=== PATIENT | female | born 1980 | race Caucasian/White ===

== ENCOUNTER 2018-03-16 00:43 | Outpatient (CLI) | payer MEDICAID, SELFPAY ==
--- NOTE | 2018-03-16 13:35 | DI.COMBO_ITS ---
SYMPTOMS/DIAGNOSIS: LUMP OR MASS, N63.0 BILATERAL MAMMOGRAM AND RIGHT BREAST ULTRASOUND: Mammograms were interpreted according to the usual protocol including computer analysis with CAD system, tomosynthesis and C view imaging. Comparison is with the prior examinations. Breast density D. No suspicious masses or microcalcifications are seen. There is a well-circumscribed 1 cm ovoid nodule in the subcutaneous tissues at the 9 o'clock position of the right breast corresponding to the palpable abnormality. No associated soft tissue calcifications or architectural distortion is seen. No other suspicious masses or microcalcifications are present. The skin and axillae are unremarkable. This ovoid nodule measured 0.7 cm on the prior examination from 11/23/2013. Targeted right breast ultrasound was performed. The mass at the 9 o'clock position was evaluated sonographically. In the subcutaneous tissues, there is an ovoid lobulated hypoechoic mass measuring 1 cm in size. No posterior acoustic enhancement or shadowing is seen. There does appear to be some internal blood flow. This area does correspond to the mammographic abnormality. IMPRESSION: Ovoid 1 cm hypoechoic vascular subcutaneous mass in the right breast corresponding to the palpable abnormality. This area was present on prior mammograms, but has shown some interval increase in size. This may represent a benign lesion such as a lymph node. Followup may include biopsy/ aspiration. If biopsy is not performed, a follow-up ultrasound in three months should be considered for reevaluation. Category 4. The findings were discussed with the patient on the date of the examination. MQSA ASSESSMENT OF FINDINGS: Suspicious. Biopsy should be considered. Category 4. Patient will receive a letter notifying them of these results. BI-RADS category D. The breasts are extremely dense, which lowers the sensitivity of mammography.
== END 2018-03-16 01:03 ==
PROVIDERS: PCP Nurse Practitioner; Visit Provider Nurse Practitioner
DX: N63.11 Unspecified lump in the right breast, upper outer quadrant (principal)
CPT/HCPCS: 76642; 77062; 77066; G0279

== ENCOUNTER 2021-01-02 03:05 | Outpatient (CLI) | payer MEDICAID, SELFPAY ==
--- NOTE | 2021-01-02 | DI.US_ITS ---
Exam(s) US BREAST LT COMPLETE US BREAST RT COMPLETE EXAM: US BREAST BILATERAL COMPLETE CLINICAL HISTORY: BILAT BREAST LUMPS, N63.0. TECHNIQUE: Complete ultrasound of both breasts was performed including all 4 quadrants of both breas ts as well as both retroareolar regions and both axillary regions. COMPARISON: Today's mammogram as well as prior mammograms reviewed.. This 40-year-old patient underw ent biopsy of the right breast approximately 3 years ago which was apparently negative for malignancy . This patient has been feeling a new right breast lump for the past 8 months. She also complains o f a finding below her left breast-anterior chest wall region FINDINGS: RIGHT BREAST ULTRASOUND: There is a solitary finding which is located at the 9 o'clock position appro ximately 2 cm from the nipple and corresponds to her palpable finding as well as the finding on the m ammogram today. This has appearance of a conglomeration of microcysts, 1 which appears to be partial ly hemorrhagic. Size is approximately 11 by 5 millimeters. No other focal findings in all 4 quadrants of the right breast nor in the immediate retroareolar jimmy on. Right axilla is negative for significant adenopathy. LEFT BREAST ULTRASOUND: There are no focal findings in all 4 quadrants nor in the immediate retroareolar region. No adenopat hy in the left axilla. However, there is a superficial finding in the anterior chest wall just below the left breast adjacen t to a rib which is a wider than taller 11 x 4 millimeter nodule which does not exhibit a tract to th e skin surface. It is adjacent to a rib but distinct-separate from the rib. Exhibits minimal increa sed through transmission. IMPRESSION: 1. 9 o'clock position finding in the right breast which corresponds to the finding on the mammogram a nd her palpable finding and has appearance of a partially hemorrhagic conglomeration of microcysts. No other focal right breast findings. 2. Findings just below the left breast adjacent to a rib measuring 11 x 4 millimeters as described ab ove. Not a simple cyst. Presently benign appearance but also requires follow-up. Appropriate follow-up is repeat bilateral breast ultrasound in 3 months, this to restudy the finding at the 9 o'clock position of the right breast as well as the finding immediately subjacent to the lef t breast.. Findings and follow-up recommendations were discussed by myself with the patient today. BI-RADS Category 3 - 3 month - Probably Benign Finding: Recommend follow-up mammography in 3 months Breast Density - Category D - Extremely dense Breast density Category C or D implies that the patient has dense breast tissue. Dense breast tissue can make it harder to find cancer on a mammogram. Dense breast tissue is also associated with an incr eased risk of breast cancer. This information about the result of the mammogram report was provided to the patient to raise their awareness. Use this report when you speak with the patient about their risks for breast cancer, which includes their family history. At that time, you may recommend additional screening tests (Ultrasoun d or MRI) as these tests may add significant information. A negative radiographic report should not delay biopsy if a dominant or clinically suspicious mass is present. Up to ten percent of cancers are not identified on mammography. A negative report may reinforce clinical impression. Adenosis and dense breasts may obscure an underlying neoplasm. False positive reports average 6 to 10%. Patient will receive a letter notifying them of these results.
--- NOTE | 2021-01-02 | DI.MAMMO_ITS ---
Exam(s) MAMMO DIAGNOSTIC BI EXAM: MAMMO DIAGNOSTIC BI CLINICAL HISTORY: BILAT BREAST LUMPS, N63.0. TECHNIQUE: Both CC and MLO views of both breasts were performed. Images were obtained with 3D Tomos ynthesistechnique and utilizing computer aided detection (CAD). Patient also underwent complete bilat eral breast ultrasound following this mammogram today. Please see that separate report. COMPARISON: Prior mammograms dating back to 2013, the most recent being March 2018. This patien t underwent right breast biopsy 2017, apparently benign. She has been feeling a new 9 o'clock position right breast lump for the last 8 months. She also has a new finding subjacent to her left breast where she claims her underwire bra is rubbing against her skin. FINDINGS: The fibroglandular tissue pattern is very dense, this decreasing sensitivity mammogram for finding in underlying lesions. There are no CAD designations in either breast. No new findings in the immediate vicinity of the biopsy marker clip which is at the 9 o'clock positio n of the right breast. However, approximately 1.5 centimeter more central at the same 9 o'clock posi tion of the right breast is her presently palpable finding which has appearance of a lobulated noncal cified nodule measuring approximately 9 x 10 millimeters. This corresponds to what appears to be a c onglomeration of partial hemorrhagic microcysts on today's ultrasound. In the opposite-left breast there are no new significant focal findings on mammography. The finding on ultrasound seen today is actually below the breast adjacent to a rib (see that separate ultrasound report dictated today. There are no malignant-appearing microcalcification groups in either breast. No new architectural di stortion. No significant skin thickening-traction. IMPRESSION: Very dense bilateral fibroglandular tissue. New right breast lobulated nodule at 9 o'clock position which corresponds to what appears to be a con glomeration of partially hemorrhagic microcysts as seen on today's ultrasound. No mammographic findi ngs in the left breast but finding on ultrasound as described on that separate report which is actual ly just below the breast adjacent to a rib. See separate ultrasound report Appropriate follow-up is repeat bilateral breast ultrasound in 3 months time.. Findings and recommendations were discussed by myself with the patient today. The patient was informed of the findings and follow-up recommendations [facility] BI-RADS Category 3 - 3 month - Probably Benign Finding: Recommend follow-up mammography in 3 months Breast Density - Category D - Extremely dense Breast density Category C or D implies that the patient has dense breast tissue. Dense breast tissue can make it harder to find cancer on a mammogram. Dense breast tissue is also associated with an incr eased risk of breast cancer. This information about the result of the mammogram report was provided to the patient to raise their awareness. Use this report when you speak with the patient about their risks for breast cancer, which includes their family history. At that time, you may recommend additional screening tests (Ultrasoun d or MRI) as these tests may add significant information. A negative radiographic report should not delay biopsy if a dominant or clinically suspicious mass is present. Up to ten percent of cancers are not identified on mammography. A negative report may reinforce clinical impression. Adenosis and dense breasts may obscure an underlying neoplasm. False positive reports average 6 to 10%. Patient will receive a letter notifying them of these results.
== END 2021-01-02 03:25 ==
PROVIDERS: PCP Nurse Practitioner; Visit Provider Nurse Practitioner
DX: N63.15 Unspecified lump in the right breast, overlapping quadrants (principal); R22.2 Localized swelling, mass and lump, trunk; N63.20 Unspecified lump in the left breast, unspecified quadrant
CPT/HCPCS: 76642; 77062; 77066; G0279

== ENCOUNTER 2021-04-07 02:21 | Outpatient (CLI) | payer MEDICAID, SELFPAY ==
--- NOTE | 2021-04-07 | DI.US_ITS ---
Exam(s) US BREAST LT COMPLETE US BREAST RT COMPLETE EXAM: US BREAST BILATERAL COMPLETE CLINICAL HISTORY: F/U MAMMO, INCONCLUSIVE, 3 MO F/U, DENSE BREAST TISSUE. TECHNIQUE: Complete ultrasound of the both breasts was performed including all 4 quadrants, the retr oareolar regions, and both axillae. COMPARISON: The prior ultrasound of 01/02/2021 was reviewed. Prior mammograms were also reviewed, m ost recent being 01/02/2021. This patient has very dense fibroglandular tissue on mammography. FINDINGS: RIGHT BREAST: Again noted is a previously described solitary finding which is at the 9 o'clock position, approximat les 2 cm from the nipple and which corresponds to a palpable finding. She claims that this has not c hanged in size. This again has the appearance of a conglomeration of benign microcysts. Presently m easures approximately 11 x 5 millimeters, unchanged. There are no other significant ultrasound findings in all 4 quadrants nor in the right axilla. LEFT BREAST: Again noted is a previously described relatively superficial finding at the 6 o'clock po sition border between the inferior aspect of the breast and the anterior chest wall. This is a well- defined 11 x 4 millimeter wider than taller nodule, unchanged from the previous study. No other significant ultrasound findings in all 4 quadrants nor in the left axilla. IMPRESSION: 1. Stable benign-appearing right breast cystic ultrasound finding at 9 o'clock position 2. Stable solid nodule 6 o'clock position of the opposite-left breast. I feel that this left breast finding should undergo ultrasound-guided biopsy. Findings are recommendations discussed by myself with the patient today. Discussed by phone with the provider today. BI-RADS Category 4 - Suspicious Abnormality: Biopsy should be considered Breast Density - Category D - Extremely dense Breast density Category C or D implies that the patient has dense breast tissue. Dense breast tissue can make it harder to find cancer on a mammogram. Dense breast tissue is also associated with an incr eased risk of breast cancer. This information about the result of the mammogram report was provided to the patient to raise their awareness. Use this report when you speak with the patient about their risks for breast cancer, which includes their family history. At that time, you may recommend additional screening tests (Ultrasoun d or MRI) as these tests may add significant information. A negative radiographic report should not delay biopsy if a dominant or clinically suspicious mass is present. Up to ten percent of cancers are not identified on mammography. A negative report may reinforce clinical impression. Adenosis and dense breasts may obscure an underlying neoplasm. False positive reports average 6 to 10%. Patient will receive a letter notifying them of these results.
== END 2021-04-07 02:41 ==
PROVIDERS: PCP Nurse Practitioner; Visit Provider Nurse Practitioner
DX: R92.8 Other abnormal and inconclusive findings on diagnostic imaging of breast (principal); N63.25 Unspecified lump in the left breast, overlapping quadrants; N60.01 Solitary cyst of right breast
CPT/HCPCS: 76642

== ENCOUNTER 2021-04-22 01:00 | Outpatient (CLI) | payer MEDICAID, SELFPAY ==
--- NOTE | 2021-04-22 | DI.US_ITS ---
Exam(s) US NEEDLE LOCAL BREAST WO RAD EXAM: US NEEDLE LOCAL BREAST WO RAD CLINICAL HISTORY: LT BREAST MASS, ULTRASOUND GUIDED BX. Left Breast. TECHNIQUE: Ultrasound guidance COMPARISON: US US BREAST LT COMPLETE from 04/07/2021 FINDINGS: Ultrasound guidance was provided during ultrasound-guided biopsy performed of a left chest wall lesio n performed by the breast surgeon. Radiologist was not present for this procedure. Supplied images reveal needle placement within the nodule of concern. IMPRESSION:
--- NOTE | 2021-04-22 14:08 | BREAST_PTH ---
PATIENT: Luisa Hollins LOC: [facility] U#:[id number] AGE/SX: 41/F ROOM: RE04/22/[address]: Morenita Tavares MD : 1980 BED: DIS: 04/22/2021 SPEC #: [id number] RECD: 04/22/21 16:39 STATUS: FRANCISCO REQ #: [id number] IVORY: 04/22/21 14:[address]: Morenita Tavares DEPT: Surgical Specimen RECD BY: Yusra Morgan ENTERED: 04/22/21 16:40 SP TYPE: Breast OTHR DR: Danisha Hooper Tissues: 1 - BREAST BX NEEDLE Procedures: GROSS AND MICRO LEVEL 4 Comments: [id number]
--- NOTE | 2021-04-24 09:32 | W.PM.OP ---
Date of service: 04/22/21 Time of Service: 13:00 Operative Note Operative Note DATE OF PROCEDURE: 04/22/21 PRE-OP DIAGNOSIS: Left Breast lesion POST-OP DIAGNOSIS: same PROCEDURE: Core needle biopsy of left Breast lesion SURGEON: Morenita Tavares ANESTHESIA TYPE: Local By Surgeon (1% Lidocaine) ESTIMATED BLOOD LOSS: 5 PATHOLOGY: other (core needle specimen) COMPLICATIONS: None Patient was transported to: no change Patient's condition: stable Implants: None Indications: Mrs Hollins is a pleasant 41-year-old female who had an abnormal mammogram. Follow-up ultrasound showed a lesion in the left breast that was suspicious. Radiologist recommended biopsy. The patient has never had a breast biopsy before. She has no family history of breast cancer that she is aware of. She has not noted any changes to the skin of the breast. The lesion is right at the mammary fold right where her bra sits. She has had no nipple discharge. Risks, benefits, alternatives and complications were reviewed with her prior to the procedure. Complications include but not limited to bleeding, injury to the ribs, pneumothorax, inability to do the biopsy due to location of the mass. On exam of the left breast the lesion is palpable. It feels well-circumscribed and very mobile. It is not tender. Procedure Description: After informed consent was obtained the patient was placed in a supine position. US was done of the left Breast and the lesion was localized by the US tech. The skin was cleaned with alcohol and infiltrated with the above local anesthetic. The skin was then prepped. An incision was made with an 11 blade. Using a 14 gauge core needle 2 specimens were removed and placed on telfa and placed in formalin. A titanium clip was then placed under US guidance into the lesion. The skin was cleaned and dried and a band aid was applied. The patient tolerated the procedure well and there were no immediate complications.
== END 2021-04-22 01:20 ==
PROVIDERS: PCP Nurse Practitioner; Visit Provider Surgery
DX: R92.8 Other abnormal and inconclusive findings on diagnostic imaging of breast (principal); N60.32 Fibrosclerosis of left breast
CPT/HCPCS: 19083; 88305; 76942

== ENCOUNTER 2021-10-27 14:01 | Outpatient (REF) | payer MEDICAID, SELFPAY ==
[2021-10-28 15:25] LABS: COVID-19 RT-PCR UVMMC Result Negative (Negative)
== END 2021-10-27 14:02 | disposition home or self-care (01) ==
LOC: LBN 14:01
PROVIDERS: PCP Nurse Practitioner; Visit Provider Physician Assistant Medical
DX: Z20.822 Contact with and (suspected) exposure to COVID-19 (principal)
CPT/HCPCS: U0003

== ENCOUNTER 2022-09-30 16:17 | Outpatient (REF) | payer MEDICAID, SELFPAY ==
--- NOTE | 2022-09-30 15:55 | PAPFT_PTH ---
PATIENT: Luisa Hollins LOC: [facility]#:[id number] AGE/SX: 42/F ROOM: RE09/30/[address]: TRE LANCE NP : 1980 BED: DIS: 09/30/2022 SPEC #: [id number] RECD: 10/01/22 12:42 STATUS: FRANCISCO REHarlan #: [id number] IVORY: 09/30/22 15:[address]: TRE LANCE DEPT: [facility] Cytology RECD BY: Yusra Morgan ENTERED: 10/01/22 12:43 SP TYPE: PAPFT OTHR DR: Danisha Hooper Tissues: 1 - CX/ENDOCX FOR PAP SMEARS Procedures: PAP THIN PREP/UVM Screening HPV DNA PROBE Comments: [id number]
[2022-10-01 02:08] LABS: Abs Immature Grans 0.02 10^3/uL (0.0-0.06); Absolute Basophil Count 0.04 10^3/uL (0.0-0.2); Absolute Eosinophil Count 0.08 10^3/uL (0.0-0.7); Absolute Lymphocyte Count 1.39 10^3/uL (1.2-3.4); Absolute Monocyte Count 0.56 10^3/uL (0.1-0.8); Absolute Neutrophil Count 4.19 10^3/uL (1.2-6.7); Basophils % 0.6; Eosinophils % 1.3; HCT 31.8 % (36.0-46.0); HGB 9.1 g/dL (11.2-15.7); Immature Grans % 0.3; Lymphocytes % 22.1; MCH 22.1 pg (27.0-33.0); MCHC 28.6 % (32.0-36.0); MCV 77 fL (80-95); MPV 10.4 fL (8.0-11.0); Monocytes % 8.9; Neutrophils % 66.8; Platelet Count 410 10^3/uL (130-400); RBC 4.12 10^6/uL (3.93-5.22); RDW 17.6 % (11.7-14.6); RDW-SD 49.4 fL; WBC 6.28 10^3/uL (4.4-10.8)
[2022-10-01 03:07] LABS: Vitamin B12 258 pg/mL (193-986)
[2022-10-01 11:20] LABS: Iron 8 ug/dL (50-170); Total Iron Binding Capacity 393 ug/dL (250-450); Transferrin Sat 2 % (15-50)
[2022-10-01 11:29] LABS: ALT 12 U/L (14-59); AST 16 U/L (15-37); Albumin 3.8 g/dL (3.4-5.0); Alkaline Phosphatase 91 U/L (46-116); Anion Gap 6.8 mmol/L (3-11); BUN 11 mg/dL (7-18); Bilirubin, Total 0.1 mg/dL (0.2-1.0); CO2 29.2 mmol/L (21.0-32.0); Calcium 8.6 mg/dL (8.5-10.1); Calculated LDL 101 mg/dL (<100); Chloride 100 mmol/L (98-107); Cholesterol 198 mg/dL (<200); Estimated GFR 71.24 (mL/min/1.73m2); Glucose 90 mg/dL (74-106); HDL Cholesterol 82 mg/dL (40-60); Sodium 136 mmol/L (136-145); TSH (W/Ref FT4) 4.45 uIU/mL (0.36-3.74); Total Protein 7.5 g/dL (6.4-8.2); Triglyceride 76 mg/dL (<150)
[2022-10-01 11:43] LABS: Vitamin D 25 Total 7.9 ng/mL (30-100)
[2022-10-01 11:59] LABS: FREE T4 0.65 ng/dL (0.76-1.46)
== END 2022-09-30 16:18 | disposition home or self-care (01) ==
LOC: NCHCN 16:17
PROVIDERS: PCP Nurse Practitioner; Visit Provider Nurse Practitioner Family
DX: Z00.00 Encounter for general adult medical examination without abnormal findings (principal); R53.83 Other fatigue; N92.0 Excessive and frequent menstruation with regular cycle; Z12.39 Encounter for other screening for malignant neoplasm of breast; Z72.0 Tobacco use; Z12.4 Encounter for screening for malignant neoplasm of cervix; Z13.220 Encounter for screening for lipoid disorders; Z71.89 Other specified counseling
CPT/HCPCS: 80053; 80061; 82306; 88142; 82607; 83540; 83550; 84439; 84443; 85025; 87624

== ENCOUNTER 2023-01-28 01:32 | Outpatient (CLI) | payer MEDICAID, SELFPAY ==
--- NOTE | 2023-01-28 | DI.MAMMO_ITS ---
Exam(s) MAMMO SCREENING EXAM: MAMMO SCREENING CLINICAL HISTORY: SCREENING, Z12.39 TECHNIQUE: Bilateral full field digital CC and MLO mammographic images were obtained with 3D tomosyn thesis and utilizing computer aided detection (CAD). COMPARISON: Available for comparison. FINDINGS: Masses/Architectural Distortion: The nodule densities in the outer right breast appears stable. Ther e is a biopsy clip again seen in the upper outer quadrant of the right breast. No suspicious nodules or areas of architectural distortion are seen. Microcalcifications: No suspicious pleomorphic-type are seen. Skin Thickening/Nipple Retraction: None. IMPRESSION: 1. No significant interval change with no specific features of malignancy noted. 2. Unless there is more urgent need, screening mammography is recommended, as per [employer] guidelines. BI-RADS Category 2 - Benign Findings Breast Density - Category D - Extremely dense Breast density category C or D implies that the patient has dense breast tissue. Dense breast tissue is very common and is not abnormal but dense breast tissue can make it harder to find cancer on a ma mmogram. Also, dense breast tissue may increase their breast cancer risk. This information about the result of the mammogram report was provided to the patient to raise their awareness. Use this report when you speak with the patient about their risks for breast cancer, which includes their family hist ory. At that time, you may recommend for more screening tests (Ultrasound or MRI) as they might be us eful based on their risk. A negative radiographic report should not delay biopsy if a dominant or clinically suspicious mass is present. Up to ten percent of cancers are not identified on mammography. A negative report may reinforce clinical impression. Adenosis and dense breasts may obscure an underlying neoplasm. False positive reports average 6 to 10%. Patient will receive a letter notifying them of these results.
== END 2023-01-28 01:52 ==
LOC: DI 01:33
PROVIDERS: PCP Nurse Practitioner; Visit Provider Nurse Practitioner Family
DX: Z12.31 Encounter for screening mammogram for malignant neoplasm of breast (principal)
CPT/HCPCS: 77063; 77067

== ENCOUNTER 2023-01-28 16:40 | Outpatient (CLI) | payer MEDICAID, SELFPAY ==
[2023-01-28 16:23] LABS: Vitamin D 25 Total 54.9 ng/mL (30-100)
== END 2023-01-28 16:41 | disposition home or self-care (01) ==
LOC: LBO 16:40
PROVIDERS: PCP Nurse Practitioner; Visit Provider Nurse Practitioner Family
DX: E55.9 Vitamin D deficiency, unspecified (principal)
CPT/HCPCS: 36415; 82306

== ENCOUNTER 2023-03-08 14:21 | Outpatient (REF) | payer MEDICAID, SELFPAY ==
[2023-03-08 22:25] LABS: Bilirubin Negative (Negative); Blood Large (Negative); Clarity Cloudy (Clear); Glucose Negative (Negative); Ketones Negative (Negative); Leukocyte Esterase Moderate (Negative); Nitrite Positive (Negative); Urobilinogen 0.2 mg/dL (Up to 0.2)
[2023-03-08 23:25] LABS: Crystals Negative HPF (Negative); Mucus Negative (Negative); WBC >50 HPF (0-5)
[2023-03-08 23:26] LABS: C & S Indicated? Yes
== END 2023-03-08 14:22 | disposition home or self-care (01) ==
LOC: LBN 14:21
PROVIDERS: PCP Nurse Practitioner Family; Visit Provider Physician Assistant
DX: N39.0 Urinary tract infection, site not specified (principal); R30.0 Dysuria; R39.15 Urgency of urination; R82.79 Other abnormal findings on microbiological examination of urine
CPT/HCPCS: 87077; 81003; 81015; 87086; 87186

== ENCOUNTER → 2023-06-10 01:28 | Outpatient (CLI) | payer MEDICAID, SELFPAY ==
--- NOTE | 2023-06-10 07:45 | DI.US_ITS ---
Exam(s) US PELVIS TRANSVAGINAL EXAM: US PELVIS TRANSVAGINAL CLINICAL HISTORY: anatomy,dysfunctional uterine bleeding,n93.8 TECHNIQUE: Ultrasound of the pelvis was performed both transabdominal and transvaginal. COMPARISON: None FINDINGS: UTERUS: Anteverted Measures 8.7 cm length x 4.2 cm AP x 7.2 cm wide. There is anterior myometrial fibroid close to the fundus measuring 2.7 x 2.3 cm x 2.0 cm. Endometrial thickness measures 4-5 mm. There appears to be a tiny amount of fluid in the endometrial canal. CERVIX: There are no obvious nabothian cysts. RIGHT OVARY: Measures 2.7 x 2.2 x 3 cm Sub cm follicular cysts noted in the right ovary. Normal flow demonstrated in the right ovary. LEFT OVARY: Measures 0.9 x 1.5 x 3.2 cm There is a unilocular cyst in the left ovary measuring 2.3 x 2.2 x 1.0 cm. Normal vascular flow demo nstrated in the left ovary. CUL-DE-SAC: No free fluid evident. IMPRESSION: 1. There is a solitary 2.7 x 2.3 cm anterior myometrial fibroid, close to the fundus. 2. There is a small amount of fluid in the endometrial cavity. 3. There is a 2.3 x 2.2 cm cyst in the right ovary. No free fluid. DATA REPOSITORY:
== END ==
PROVIDERS: PCP Nurse Practitioner Family; Visit Provider Obstetrics & Gynecology
DX: N83.01 Follicular cyst of right ovary; N83.02 Follicular cyst of left ovary
CPT/HCPCS: 76830; 76856

== ENCOUNTER 2023-06-10 14:33 | Outpatient (CLI) | payer MEDICAID, SELFPAY ==
[2023-06-10 14:22] LABS: Abs Immature Grans 0.03 10^3/uL (0.0-0.06); Absolute Basophil Count 0.06 10^3/uL (0.0-0.2); Absolute Eosinophil Count 0.12 10^3/uL (0.0-0.7); Absolute Lymphocyte Count 0.96 10^3/uL (1.2-3.4); Absolute Monocyte Count 0.71 10^3/uL (0.1-0.8); Basophils % 0.9; Eosinophils % 1.7; HCT 46.7 % (36.0-46.0); HGB 15.3 g/dL (11.2-15.7); Immature Grans % 0.4; Lymphocytes % 13.8; MCH 33.6 pg (27.0-33.0); MCHC 32.8 % (32.0-36.0); MCV 102 fL (80-95); MPV 8.8 fL (8.0-11.0); Monocytes % 10.2; Platelet Count 308 10^3/uL (130-400); RBC 4.56 10^6/uL (3.93-5.22); RDW 13.2 % (11.7-14.6); WBC 6.98 10^3/uL (4.4-10.8)
[2023-06-10 14:58] LABS: ALT 14 U/L (14-59); AST 20 U/L (15-37); Albumin 3.7 g/dL (3.4-5.0); Alkaline Phosphatase 83 U/L (46-116); Anion Gap 7.9 mmol/L (3-11); BUN 8 mg/dL (7-18); Bilirubin, Total 0.4 mg/dL (0.2-1.0); CO2 29.1 mmol/L (21.0-32.0); CREATININE 0.9 mg/dL (0.55-1.02); Calcium 9.1 mg/dL (8.5-10.1); Chloride 98 mmol/L (98-107); Estimated GFR 80.34 (mL/min/1.73m2); Glucose 59 mg/dL (74-106); Potassium 3.5 mmol/L (3.5-5.1); Sodium 135 mmol/L (136-145); TSH (W/Ref FT4) 2.98 uIU/mL (0.36-3.74); Total Protein 7.8 g/dL (6.4-8.2)
[2023-06-10 15:39] LABS: Iron 150 ug/dL (50-170)
[2023-06-10 23:13] LABS: Prolactin 10.9 ng/mL (See Note)
== END 2023-06-10 14:34 | disposition home or self-care (01) ==
LOC: LBO 14:34
PROVIDERS: Obstetrics & Gynecology; PCP Nurse Practitioner Family; Visit Provider Nurse Practitioner Family
DX: N93.8 Other specified abnormal uterine and vaginal bleeding (principal); Z00.00 Encounter for general adult medical examination without abnormal findings
CPT/HCPCS: 36415; 80053; 83540; 84146; 84443; 85025

== ENCOUNTER 2024-02-28 20:06 | Outpatient (REF) | payer MEDICAID, SELFPAY ==
[2024-02-28 19:02] LABS: HGB 14.9 g/dL (11.2-15.7); MCH 33.3 pg (27.0-33.0); MCHC 33.1 % (32.0-36.0); MCV 101 fL (80-95); Platelet Count 304 10^3/uL (130-400); RBC 4.47 10^6/uL (3.93-5.22); RDW 12.6 % (11.7-14.6); RDW-SD 47.5 fL; WBC 7.93 10^3/uL (4.4-10.8)
[2024-02-28 19:44] LABS: ALT 21 U/L (14-59); AST 24 U/L (15-37); Albumin 3.4 g/dL (3.4-5.0); Alkaline Phosphatase 89 U/L (46-116); Anion Gap 8.5 mmol/L (3-11); BUN 14 mg/dL (7-18); Bilirubin, Total 0.21 mg/dL (0.2-1.0); CO2 28.5 mmol/L (21.0-32.0); CREATININE 0.8 mg/dL (0.55-1.02); Calcium 9.2 mg/dL (8.5-10.1); Chloride 100 mmol/L (98-107); Estimated GFR 92.54 (mL/min/1.73m2); Ferritin 68 ng/mL (8-252); Glucose 92 mg/dL (74-106); Potassium 4.7 mmol/L (3.5-5.1); Sodium 137 mmol/L (136-145)
[2024-02-28 19:54] LABS: Iron 283 ug/dL (50-170); Total Iron Binding Capacity 306 ug/dL (250-450); Transferrin Sat 92 % (15-50)
[2024-03-01 13:05] LABS: Chlamydia Result Negative (Negative); GC Result Negative (Negative)
[2024-03-01 13:50] LABS: Bacterial Vaginosis (BV) Positive (Negative); Candida glabrata Negative (Negative); Candida species group Negative (Negative); Trichomonas vaginalis Positive (Negative)
== END 2024-02-28 20:07 | disposition home or self-care (01) ==
LOC: NCHCN 20:06
PROVIDERS: PCP Nurse Practitioner Family; Referring Provider Nurse Practitioner Family; Visit Provider Nurse Practitioner Family
DX: Z11.3 Encounter for screening for infections with a predominantly sexual mode of transmission (principal); R53.83 Other fatigue
CPT/HCPCS: 80053; 81513; 82306; 85027; 87481; 87491; 87591; 87661; 82728; 83540; 83550

== ENCOUNTER 2024-04-21 00:43 | Outpatient (CLI) | payer MEDICAID, SELFPAY ==
--- NOTE | 2024-04-21 | DI.MAMMO_ITS ---
Exam(s) MAMMO SCREENING EXAM: MAMMO SCREENING CLINICAL HISTORY: SCREENING MAMMO Z12.31. TECHNIQUE: Bilateral full field digital CC and MLO mammographic images were obtained with 3D tomosyn thesis and utilizing computer aided detection (CAD). COMPARISON: Prior mammograms were reviewed. FINDINGS: Fibroglandular tissue pattern is again noted be extremely Dense. There are no CAD designations. There are no obvious new spiculated masses nor malignant appearing microcalcification groups. No new findings evident in the immediate this in the of biopsy marker clip in the lateral aspect of t he right breast. There is no significant architectural distortion nor skin thickening-retraction. IMPRESSION: No radiographic evidence of malignancy. Very dense bilateral fibroglandular tissue. BI-RADS Category 1 - Negative Breast Density - Category D - Extremely dense Breast density Category C or D implies that the patient has dense breast tissue. Dense breast tissue can make it harder to find cancer on a mammogram. Dense breast tissue is also associated with an incr eased risk of breast cancer. This information about the result of the mammogram report was provided to the patient to raise their awareness. Use this report when you speak with the patient about their risks for breast cancer, which includes their family history. At that time, you may recommend additional screening tests (Ultrasoun d or MRI) as these tests may add significant information. A negative radiographic report should not delay biopsy if a dominant or clinically suspicious mass is present. Up to ten percent of cancers are not identified on mammography. A negative report may reinforce clinical impression. Adenosis and dense breasts may obscure an underlying neoplasm. False positive reports average 6 to 10%. Patient will receive a letter notifying them of these results.
== END 2024-04-21 01:03 ==
LOC: DI 00:43
PROVIDERS: PCP Nurse Practitioner Family; Visit Provider Nurse Practitioner Family
DX: Z12.31 Encounter for screening mammogram for malignant neoplasm of breast (principal)
CPT/HCPCS: 77063; 77067